=== PATIENT | female | born 1955 | race Caucasian/White ===

== ENCOUNTER 2020-01-01 16:14 | Emergency (ER) | payer MEDICARE, SELFPAY ==
[2020-01-01 16:15] VITALS: BP 159/70; PULSE 85; RESP 16; TEMP 36.7; O2SAT 99; BMI 32.1
--- NOTE | 2020-01-01 16:20 | ED.VIS.GEN ---
History of Present Illness Chief Complaint: Laceration Informant: Patient Onset: Today Context: Sudden Onset Timing: Continuous Current Severity: Moderate Maximum Severity: Moderate Narrative: The patient is a 64-year-old female who is otherwise healthy, with up-to-date tetanus, the presents to the emergency department with injury to her left index finger. The patient is right-hand dominant. She states that she was using a trimmer operator three knife. She states that the branch got stuck in the head tremor. She went to remove it, and the tremor started again. It incised the tip of her finger. She placed a towel over it and presented immediately. She denies other injury. She is otherwise been in her normal state of health. Prior similar symptoms: No Recent Illness/Hospitalization: No Past Medical History - Allergies and Home Meds Allergies/Adverse Reactions: Allergies morphine Allergy (Verified 01/01/20 16:16) Itching Primary Care Physician: Yary Weiss DO [STAFF PHYSICIAN] - Prior records reviewed: Yes Past Medical History: None Surgical History: noncontributory Smoking Status: Current some day smoker Review of Systems General: Denies: Chills, Fever, Sweats Eyes: Denies: Visual changes - bilaterally, Diplopia ENT: Denies: Rhinorrhea, Sore throat Cardiovascular: Denies: Chest pain, Palpitations Respiratory: Denies: Dyspnea, Cough, Dyspnea on exertion Gastrointestinal: Denies: Abdominal pain, Nausea, Vomiting, Diarrhea, Melena, Hematochezia Genitourinary: Denies: Dysuria, Hematuria, Frequency Musculoskeletal: Denies: Back pain, Extremity Pain Skin: Denies: Rash, Wounds Neurological: Denies: Headache, Weakness, Numbness Physical Exam Vital Signs/Narrative: Vital Signs Temp Pulse Resp BP Pulse Ox 01/01/20 16:15 98.1 F 85 16 159/70 H 99 Inital Vital Signs reviewed: Yes General: Well nourished, Well developed, No Acute Distress Head: Normocephalic, Atraumatic Eyes: Perrl, EOMI ENT: Moist mucous membranes, No rhinorrhea Neck: Supple, Nontender Cardiovascular: Regular rate, Regular rhythm, No murmurs Respiratory: No distress, CTA bilaterally, Chest nontender Abdomen: Soft, Nontender, Nondistended, Normal bowel sounds Back: Nontender, Normal Inspection Extremities: No edema, Tenderness - The patient has a 2 cm full-thickness laceration from the distal pad of the left index back with a small avulsion of the nail. Two-point discrimination is preserved. Flexion extension preserved. Skin: Normal color, No rash Neurological: Alert, Oriented x3, Cranial nerves II-XII grossly intact, Normal Strength, Normal Sensation Psychological: Normal affect, Normal Mood Diagnostic/Tx/Re-eval Clinical Impression(s) from Imaging Studies Hand X-Ray 01/01/20 16:25 IMPRESSION: 1. Fracture of the second distal phalanx with associated soft tissue injury. 2. Arthrosis of the hand and wrist. Electronically Signed: Aleksander Birch DO at 16:56 EDT Tel [phone], Service support , - Medical Decision Making The patient presents with injury to his left index finger. She is neurovascularly intact. I did obtain an x-ray. She does have evidence of a tuft fracture. The patient underwent digital block with 10 cc of bupivacaine. The wound was aggressively irrigated. A turnicot was placed and it was explored. I was able to close the wound with 8 simple interrupted suture. There was a small laceration near the nailbed, but I elected not to remove the nail as there was good wound approximation with no further bleeding. The patient will be placed on Duricef and analgesics. She is placed in AlumaFoam splint and given outpatient orthopedic follow-up. She will follow-up in 48 hours for wound recheck. Impression 1. Open tuft fracture left finger 2. Laceration repair 3. Digital block ED Disposition - Plan for ED Patient: Instructions: ED Fx Finger Open Prescriptions: Cefadroxil [Duricef] 1,000 mg PO BID #40 cap Prescription Printed Hydrocodone Bitart/Apap 5-325 [[place] 5MG-325MG] 1 tab PO Q6H PRN PRN 3 Days #10 tab PRN Reason: Pain Prescription Printed Referrals: Yary Weiss DO [STAFF PHYSICIAN] -
--- NOTE | 2020-01-01 16:25 | RAD_ITS ---
STUDY: X-RAY - LEFT HAND REASON FOR EXAM: Female, 64 years old. Injured hand with hedge tremors. TECHNIQUE: 3 view(s) of the hand. COMPARISON: None. FINDINGS: There is joint space narrowing of the radiocarpal articulation consistent with degenerative arthrosis. Normal distal radioulnar joint. Normal visualized carpal bones. There is degenerative joint disease of the scaphotrapezium / trapezoid articulation. The remainder of the carpal articulations are normal. There is degenerative arthrosis of the carpometacarpal (CMC) articulation of the thumb. Normal second through fifth carpometacarpal joints. Normal metacarpi. Normal metacarpophalangeal joint of the thumb. There is degenerative arthrosis of the interphalangeal joint of the thumb with articular joint space narrowing. Normal proximal and distal phalanges of the thumb. Normal metacarpophalangeal joints of the second through fifth fingers. There is diffuse articular joint space narrowing of the proximal and distal interphalangeal joints of the second through fifth fingers, but without erosive changes or periarticular soft tissue swelling. There is a comminuted fracture of the tuft of the second digit. The phalanges are otherwise intact. There is soft tissue disruption of the tip of the second digit. RAD/Hand Min 3 Views IMPRESSION: 1. Fracture of the second distal phalanx with associated soft tissue injury. 2. Arthrosis of the hand and wrist. Electronically Signed: Aleksander Birch DO at 16:56 EDT Tel [phone], Service support ,
== END 2020-01-01 18:07 | disposition home or self-care (01) ==
PROVIDERS: Emergency Provider Emergency Medicine; PCP Family Medicine
DX: S62.631B Displaced fracture of distal phalanx of left index finger, initial encounter for open fracture (principal); F17.200 Nicotine dependence, unspecified, uncomplicated; W29.3XXA Contact with powered garden and outdoor hand tools and machinery, initial encounter; Y93.H2 Activity, gardening and landscaping; Y92.007 Garden or yard of unspecified non-institutional (private) residence as the place of occurrence of the external cause; Y99.8 Other external cause status
CPT/HCPCS: 12001; 73130; 99284

== ENCOUNTER → 2020-01-28 | Outpatient (CLI) | payer MEDICARE, SELFPAY ==
[2020-01-28 07:53] VITALS: BMI 32.1
--- NOTE | 2020-01-28 08:43 | RAD_ITS ---
STUDY: X-RAY - LEFT HAND, ATTENTION INDEX FINGER REASON FOR EXAM: Female, 64 years old. F/U TO DISTAL LEFT INDEX FINGER (2ND DIGIT). TECHNIQUE: 3 view(s) of the finger were obtained. COMPARISON: 01/01/2020. FINDINGS: A previously described comminuted fracture involving the distal tuft of the distal phalanx of the index finger has undergone some progressive healing since the previous study but complete osseous union has yet to occur. Joint spaces are well-preserved. No new fracture or suspicious lesion identified. RAD/Finger(s) Min 2 Views IMPRESSION: Partial, but not yet complete healing of a previously described, comminuted fracture in the distal tuft of the distal phalanx index finger. Electronically Signed: Gerard Garibay MD at 10:30 EDT , Service support ,
== END | disposition home or self-care (01) ==
LOC: HPRAD 08:30
PROVIDERS: PCP Family Medicine; Referring Provider Orthopaedic Surgery; Visit Provider Orthopaedic Surgery
DX: S62.639B Displaced fracture of distal phalanx of unspecified finger, initial encounter for open fracture (principal)
CPT/HCPCS: 73140